=== PATIENT | male | born 1995 ===

== ENCOUNTER 2025-03-13 03:12 | Outpatient (CLI) | payer SELFPAY ==
--- NOTE | 2025-03-13 16:09 | DI.RAD_ITS ---
Exam(s) XR KNEE LT 3V AP,LAT,YOLANDA EXAM: XR KNEE LT 3V AP,LAT,YOLANDA CLINICAL HISTORY: CHRONIC PAIN OF L KNEE, M25.562,S/P TRAUMA. TECHNIQUE: 2D digital imaging was performed. COMPARISON: No exams were available for comparison FINDINGS: 3 views No evidence of fracture nor obvious joint effusion and there is no joint space narrowing nor osteochondral defects. Bone density normal. No osseous lesions. There appears to be slight irregularity of the silhouette of the quadriceps tendon on the lateral view. There also appears to be some mild prepatellar swelling as well as subcutaneous swelling anterior to the superior half of the patellar ligament. There is no patella displacement. IMPRESSION: Anterior soft tissue swelling and soft tissue findings as described above. No osseous findings. No obvious joint effusion. DATA REPOSITORY: RADIATION DOSE DELIVERED:
== END 2025-03-13 03:32 ==
PROVIDERS: PCP Nurse Practitioner Family; Visit Provider Nurse Practitioner Family
DX: M25.562 Pain in left knee (principal); G89.29 Other chronic pain
CPT/HCPCS: 73562